=== PATIENT | male | born 2000 | race Caucasian/White ===

== ENCOUNTER 2024-06-29 07:43 | Outpatient (OUT) | payer OTHER, SELFPAY ==
--- NOTE | 2024-06-29 | XR_ITS ---
The [address] [address] Patient Name: KHUSHI JEFFRIES MRN: [id number] date: 2000 Sex: M Assigned Patient Location: Current Patient Location: Accession/Order Number: [id number] Exam Date: 06/29/2024 07:45 Report Date: 06/29/2024 16:30 At the request of: ANTWAN DHALIWAL Procedure: XR knee LT 4V EXAM: XR knee LT 4V HISTORY: LEFT KNEE PAIN COMPARISON: None. TECHNIQUE: 4 views. FINDINGS: No evidence of acute fracture, dislocation, or significant degenerative change. No significant joint effusion. XR/XR knee LT 4V IMPRESSION: Unremarkable left knee. Electronically authenticated by: LEROY VALDEZ Date: 06/29/2024 16:30
== END 2024-06-29 07:44 | disposition home or self-care (01) ==
PROVIDERS: PCP Family Medicine; Visit Provider Orthopaedic Surgery
DX: S89.92XD Unspecified injury of left lower leg, subsequent encounter (principal)
CPT/HCPCS: 73564

== ENCOUNTER 2025-05-12 09:49 | Outpatient (OUT) | payer BC, SELFPAY ==
--- OUTSIDE RECORDS SUMMARY | 2025-05-12 09:59 | XMS_ITS | Clinical Summary ---
Author Organization [facility] Address [address] [facility] [place] [address] Care Team Providers Care Machine Filler Shredder Name Role Phone Kerri Mckeon MD Primary Care Provider Allergies Active AllergyReactionsCriticalityNoted DateCommentsSulfamethoxazoleUnknown 04/09/2023 Medications MedicationSigDispense QuantityRefillsLast FilledStart DateEnd DateStatus fluocinolone (Synalar) 0.01 % external solution Indications:Chronic eczematous otitis externa of both ears4 drops in each ear 2 times daily for 10 days. May repeat once monthly 60 mL 04/16/2023ctive fluocinolone (Synalar) 0.025 % cream Indications:Chronic eczematous otitis externa of both earsApply to outer ear 2 times daily for 10 days. May repeat once monthly 60 g 04/16/2023ctive methylPREDNISolone (Medrol Dospak) 4 MG tablets Indications:Left elbow painFollow schedule on package instructions 21 tablet 05/11/2024ctive Active Problems ProblemNoted DateDiagnosed DateChronic eczematous otitis externa of both ears 04/16/2023dolescent idiopathic scoliosis of thoracolumbar gtwhxy6404/09/2023 Exercise-induced qmfjpo7404/09/2023rimary anxsrupm37/28/2023 Encounters DateTypeDepartmentCare FrhoCzisvzhmsiu31/30/2025Telephone [facility] [address] [place] [phone] Deanne Meza, ARRT from Last 3 Months Immunizations ImmunizationAdministration DatesNext DueDTaP, Ufaxvgfmbcp41/01/2007,05/20/2002, 2001,2001,2001Hep B, Adolescent or Hnfgpcffm74/23/2002, 2001,2001Hib (HbOC)02/02/2002,2001,2001,2001IPV 10/11/2006,05/20/2002,2001,2001Influenza Whole03/22/2003,02/10/2003 MMR10/11/2006,02/02/2002MMRV10/11/2006Meningococcal GKI1N4212/10/2018,01/23/2013 Pneumococcal Conjugate PCV ,2001,2001,2001Tdap 01/04/20126394Jyngqxnbx77/01/2007,02/02/2002 Family History Medical HistoryRelationNameCommentsDiabetesMaternal GrandfatherHypertension Maternal GrandmotherDiabetesMaternal GrandparentHypertensionMaternal Grandparent Colon cancerPaternal GrandfatherLeukemiaPaternal GrandfatherProstate cancer Paternal GrandfatherHeart diseasePaternal GrandmotherHeart diseasePaternal GrandparentHypertensionPaternal GrandparentRelationNameStatusCommentsFatherAlive Maternal GrandfatherAliveMaternal GrandmotherAliveMaternal GrandparentMother AlivePaternal GrandfatherDeceasedPaternal GrandmotherAlivePaternal Grandparent Social History Tobacco UseTypesPacks/DayYears UsedDateSmoking Tobacco: NeverSmokeless Tobacco: Never Tobacco Cessation:Counseling Given: Not Answered Alcohol UseStandard Drinks/WeekCommentsNever0 (1 standard drink = 0.6 oz pure alcohol)Sex and Gender InformationValueDate RecordedSex Assigned at BirthNot on fileLegal FwsCzcn7007/25/2022 7:20 PM EDTGender IdentityNot on fileSexual OrientationNot on file Last Filed Vital Signs Vital SignReadingTime TakenCommentsBlood Lzeqgspz974/9512/09/2022 1:32 PM EST Pulse--Temperature--Respiratory Rate--Oxygen Saturation--Inhaled Oxygen Concentration--Wyejbl97.4 kg (175 lb)04/16/2023 1:32 PM XGATobnng554.9 cm (6') 04/16/2023 1:32 PM ESTBody Mass Index23.7304/16/2023 1:32 PM EST Plan of Treatment DateTypeDepartmentCare Team (Latest Contact Info)Dmxqjmrpvnc80/05/2026 8:30 AM ESTOffice Visit [facility] [address] [place] [address] Tarik Sears, SUMI [address] [place] [address] Health MaintenanceDue DateLast DoneCommentsPneumococcal Vaccine: Pediatrics (0 to 5 Years) and At-Risk Patients (6 to 64 Years) (1 of 2 - PCV)01/19/2020 02/10/2003, 2001, 2001, Additional history existsInfluenza Vaccine (#1)5105/22/2002, 02/10/2003 Insurance Care Teams Team MemberRelationshipSpecialtyStart DateEnd Date Kerri Mckeon MD [address] [facility] [address] [place] [address] [facility]09/18/22
--- OUTSIDE RECORDS SUMMARY | 2025-05-12 09:59 | XMS_ITS | Clinical Summary ---
Author Organization [facility] Address [address] [facility], [address] [place] [address] Care Team Providers Care Manager Of Information Name Role Phone Kerri Mckeon MD Primary Care Provider [phone] Social History Tobacco UseTypesPacks/DayYears UsedDateSmoking Tobacco: Never AssessedSex and Gender InformationValueDate RecordedSex Assigned at BirthNot on fileLegal Sex Male06/22/2012 5:04 PM ESTGender IdentityNot on fileSexual OrientationNot on file Plan of Treatment Health MaintenanceDue DateLast DoneCommentsDepression Mylesw0901/18/2013HIV screen 01/19/2016HPV vaccine (1 - Male 3-dose series)01/19/2016Hepatitis C screen 2019Hepatitis B vaccine (1 of 3 - 19+ 3-dose series)01/19/2020DTaP/Tdap/Td vaccine (7 - Td or Tdap), 10/11/2006, 05/20/2002, Additional history existsFlu vaccine (#1)511/02/2003, 02/10/2003COVID-19 Vaccine ( season)2025Hib soogsirUztmflrkx35/23/2002, 2001, 2001, Additional history existsPneumococcal 0-49 years VaccineAged Out 02/10/2003, 2001, 2001, Additional history existsNo longer eligible based on patient's age to complete this topicPolio sttplfbWsypcxlzo49/01/2007, 05/20/2002, 2001, Additional history existsVaricella vaccineCompleted 10/11/2006, 10/11/2006, 02/02/2002Meningococcal (ACWY) vaccineCompleted 12/10/2018, 01/23/2013Hepatitis A vaccineAged OutNo longer eligible based on patient's age to complete this topicMeningococcal B vaccineAged OutNo longer eligible based on patient's age to complete this topic Insurance * Guarantor: John Jeffries TypeRelation to PatientDate of BirthPhone Billing AddressPersonal/YyxskuHbxb2000 [address] [place] [id number] Care Teams Team MemberRelationshipSpecialtyStart DateEnd Date Kerri Mckeon MD [address] [facility] [address] [place] [address] PCP - GeneralFamily Medicine07/15/24
--- OUTSIDE RECORDS SUMMARY | 2025-05-12 09:59 | XMS_ITS | Clinical Summary ---
Author Organization [employer] Address [id number] [address] [place] [address] Care Team Providers Care Parts Coordinator Name Role Phone Haroon Griffith DO Primary Care Provider [phone] Allergies Active AllergyReactionsCriticalityNoted DateCommentsSulfa (Sulfonamide Antibiotics)LcjgGof4304/11/2023 Active Problems ProblemNoted DateDiagnosed DateSprain of medial collateral ligament of left knee 01/29/2024Sprain of anterior cruciate ligament of left knee01/29/2024 Social History Tobacco UseTypesPacks/DayYears UsedDateSmoking Tobacco: NeverSmokeless Tobacco: NeverSex and Gender InformationValueDate RecordedSex Assigned at BirthNot on fileLegal AtbVhwq88/22/2022 3:34 PM EDTGender IdentityNot on fileSexual OrientationNot on file Last Filed Vital Signs Vital SignReadingTime TakenCommentsBlood Oveoicci152/7611 3:16 AM EST Irmon568104/11/2023 3:16 AM XANQbfbvqktyph56.1 ??C (98.8 ??F)04/11/2023 3:16 AM ESTRespiratory Tqty879506/11/2022 3:16 AM ESTOxygen Wsjjqecgha69%04/11/2023 3:16 AM ESTInhaled Oxygen Concentration--Zuvwmt43.9 kg (185 lb)01/29/2024 7:57 AM EDT Rkmjsd053.9 cm (6')01/29/2024 7:57 AM EDTBody Mass Index25. 7:57 AM EDT Plan of Treatment Health MaintenanceDue DateLast DoneCommentsDepression Nyqqomtmu25/08/2013 DTaP,Tdap and Td Vaccines (7 - Td or Tdap), 10/11/2006, 05/20/2002, Additional history existsInfluenza Pidklth67/01/36596305/22/2002, 02/10/2003Adult BMI Xvimtypny32/18/36788001/29/2024Tobacco Yldobhggd90/18/2025 01/29/2024 Medical Devices [place] [address] Care Teams Team MemberRelationshipSpecialtyStart DateEnd Date Haroon Griffith DO [address] [place] [address] [place] [address] PCP - GeneralFamily Hmdeodfi56/22/22
--- OUTSIDE RECORDS SUMMARY | 2025-05-12 09:59 | XMS_ITS | Encounter Summary ---
Author Organization [facility] Address [address] [place] [address] Care Team Providers Care Review Coordinator Name Role Phone Kerri Mckeon MD Primary Care Provider [phone] Encounter Details DateTypeDepartmentCare Team (Latest Contact Info)Fvosuaudovv56/30/2025Telephone [facility] [address] [place] [phone] Deanne Meza ARRT [address] [phone] Social History Tobacco UseTypesPacks/DayYears UsedDateSmoking Tobacco: NeverSmokeless Tobacco: NeverAlcohol UseStandard Drinks/WeekCommentsNever0 (1 standard drink = 0.6 oz pure alcohol)Sex and Gender InformationValueDate RecordedSex Assigned at Not on fileLegal UfeCadl5107/25/2022 7:20 PM EDTGender IdentityNot on fileSexual OrientationNot on filedocumented as of this encounter Miscellaneous Notes * Telephone Encounter - Lucie Rodriguez - 05/11/2025 1:49 PM EST Please send to [facility]. Please * Telephone Encounter - BRIANA Zaragoza - 05/11/2025 1:28 PM EST Called patient and left VM. Has an appt Saturday for follow up on scoliosis. Was given an order for an XR at his last visit. Called to see if he had the XR done. If not, a new order needs to be put in,need to know what location he would want to go to documented in this encounter Plan of Treatment DateTypeDepartmentCare Team (Latest Contact Info)Zdkfldfivhd56/05/2026 8:30 AM ESTOffice Visit [facility] [address] [facility] [address] Tarik Sears, SUMI [address] [place] [address] NameTypePriorityAssociated DiagnosesOrder ScheduleXR scoliosis 1 viewImaging Routine Adolescent idiopathic scoliosis of thoracolumbar region Expected: 05/11/2025 (Approximate), Expires: 05/11/2026documented as of this encounter Visit Diagnoses Diagnosis Adolescent idiopathic scoliosis of thoracolumbar region documented in this encounter Care Teams Team MemberRelationshipSpecialtyStart DateEnd Date Kerri Mckeon MD [address] [facility] [address] [place] [address] PCP - GeneralFamily Medicine09/18/22documented as of this encounter
--- OUTSIDE RECORDS SUMMARY | 2025-05-12 09:59 | XMS_ITS | CCD ---
Author Organization [facility] Care Team Providers Care Financial Advocate Name Role Phone MICHELLE, DR GUSTAFSON Primary Care Unavailable HAY ., DR PURI Admitting Unavailable HAY ., DR PURI Attending Unavailable GRECHNY ., RICARDA HOPPER Consulting UnavailFRANKIE Fierro Consulting Unavailable MICHELLE, DR GUSTAFSON Admitting Unavailable MICHELLE, DR GUSTAFSON Attending Unavailable MICHELLE, DR GUSTAFSON Primary Care Unavailable WANDER JOSEPH Attending Unavailable GORHAROON ROJAS Referring Unavailable GORNONANCYCZ, HAROON Primary Care Unavailable WANDER JOSEPH Referring Unavailable GORNOWICZ, HAROON Primary Care Unavailable Kerri Martinez MD Primary Care Provider FRANKIE MALONEY Attending FRANKIE Key Referring Unavailable FRANKIE MALONEY Attending Unavailable FRANKIE MALONEY Referring Unavailable FRANKIE MALONEY Referring Unavailable GornowiHaroon patel DO Primary Care Provider MILAD DHALIWAL Attending Unavailable MILAD DHALIWAL Referring Unavailable Kerri Martinez MD Primary Care Provider [phone] Allergies Allergy ClassificationReported Allergen(s)Allergy TypeDate of OnsetReaction(s) Facility (2 sources)Sulfonamides (Antibiotic)Drug allergy (disorder)[facility] (3 sources)Sulfonamides (Antibiotic); Translations: [SULFA (SULFONAMIDE ANTIBIOTICS)]Propensity to adverse reactions to drug (disorder)63-14-5137Xdxw [facility] (6 sources)SulfamethoxazoleAllergy to -05-5797[facility] Medications Current Medications MedicationDrug Class(es)DatesSig (Normalized)Sig (Original)fluocinolone acetonide 0.1 mg/ml topical solution (12 sources)CorticosteroidStart: 34-70-1636mzmaplkxwmvx (Synalar) 0.01 % external solution Indications: Chronic eczematous otitis externa of both ears 4 drops in each ear 2 times daily for 10 days. May repeat once monthly 60 mL 04/16/2023 ActiveStart: 33-40-5688eqykbriiozgd (Synalar) 0.025 % cream Indications: Chronic eczematous otitis externa of both ears Apply to outer ear 2 times daily for 10 days. May repeat once monthly 60 g 04/16/2023 Active methylPREDNISolone (2 sources)CorticosteroidStart: 23-51-6602lpooowCAMRJLXwfovn (Medrol Dospak) 4 MG tablets Indications: Left elbow pain Follow schedule on package instructions 21 tablet 05/11/2024 Active Problems Active Problems Problem ClassificationProblemDateDocumented DateEpisodic/ChronicAsthma (6 sources)Exercise-induced asthma; Translations: [Exercise induced bronchospasm]Onset: 676233-36-3716DqqrmquZsxii disorders and dislocations; trauma-related (1 source)Patellofemoral syndrome of right knee; Translations: [Patellofemoral disorders, right knee]37-68-3808QnemlmaJgecjekjxlobc mental health disorders (6 sources)Primary insomnia; Translations: [Primary insomnia]Onset: 04-09-2023 59-22-5717CflgnzrGmqit bone disease and musculoskeletal deformities (8 sources)Adolescent idiopathic scoliosis of thoracolumbar spine; Translations: [Adolescent idiopathic scoliosis, thoracolumbar region]Onset: 04-09-2023 36-55-1931HnewindCxrnl connective tissue disease (1 source)Lateral epicondylitis of left humerus; Translations: [Lateral epicondylitis, left elbow]19-39-6119BwnwghwuDhnig ear and sense organ disorders (6 sources)Chronic eczema of external auditory canal; Translations: [Other otitis externa, bilateral]Onset: 567769-69-8246NyhqeyrBtccz injuries and conditions due to external causes (1 source)Injury of left knee; Translations: [Unspecified injury of left lower leg, initial encounter]60-19-5188OisrzzxqVhnjd non-traumatic joint disorders (2 sources)Pain in left knee; Translations: [Pain in joint, lower leg]Onset: 331020-85-0216MdapxcllNmbfp non-traumatic joint disorders (1 source)Pain in elbow; Translations: [Pain in left elbow]94-40-6982Gzkgmvra Other non-traumatic joint disorders (1 source)Pain in right knee; Translations: [Pain in joint, lower leg]05-11-2024 EpisodicResidual codes; unclassified (1 source)PainOnset: 80-10-4398IqnlzxyzJglpoup and strains (11 sources)Sprain of joints and ligaments of unspecified parts of neck, initial encounter; Translations: [Sprain of medial collateral ligament of left knee, initial encounter]Onset: 846702-62-3389Cetunims Past or Other Problems Problem ClassificationProblemDateDocumented DateEpisodic/ChronicE Codes: Struck by; against (1 source)Accidental striking against or bumped into by another person, initial encounter; Translations: [ACCSTRIK/BUMPED ANOTHER PERSN INIT]Onset: 03-12-2022 EpisodicE Codes: Unspecified (1 source)Activity, mexican tackle football; Translations: [ACTIVITY PERUVIAN TACKLE FOOTBALL]Onset: 76-26-9964UbiaiyxjKnofj injuries and conditions due to external causes (1 source)Other specified injuries of head, initial encounter; Translations: [OTH SPEC INJURIES HEAD INITIAL ENC]Onset: 03-46-8294VxphunesQmomwufbowl; intervertebral disc disorders; other back problems (3 sources)Cervicalgia; Translations: [CERVICALGIA]Onset: 17-27-2640Bbohppus Results Test NameValueInterpretationReference RangeFacilityMR Knee - left WO contraston . Moderate to high-grade partial tear of the medial collateral ligament with associated bone marrow edema and equivocal small avulsion of the medial femoral condyle. Recommend CT scan to confirm. 2. Small effusion. 3. No internal derangement. [facility] RIS CONSOLIDATEDEXAMINATION: MRI OF THE LEFT KNEE WITHOUT CONTRAST, 07/15/2024 10:04 am TECHNIQUE: Multiplanar multisequence MRI of the left knee was performed without the administration of intravenous contrast. COMPARISON: None. HISTORY: ORDERING SYSTEM PROVIDED HISTORY: Injury of left knee, initial encounter FINDINGS: MENISCI: Intact medial and lateral menisci. LIGAMENTS: ACL: Normal PCL: Normal MCL: There is thickening and increased signal within the medial collateral ligament and juxtaposed bone marrow edema and equivocal small avulsion of the condyle at the insertion site of the deep fibers of the meniscal femoral ligament.. LCL complex: Normal EXTENSOR MECHANISM: The patella is in normal position. The quadriceps and patellar tendons are unremarkable. The medial and collateral retinaculum are normal. The patellar cartilage is normal. KNEE JOINT: Small effusion. BONE/CARTILAGE: The cartilage is smooth without focal defect. No focal marrow lesion. SOFT TISSUE: Unremarkable [facility] Mateo Colby MD - 07/15/2024 EXAMINATION: MRI OF THE LEFT KNEE WITHOUT CONTRAST, 07/15/2024 10:04 am TECHNIQUE: Multiplanar multisequence MRI of the left knee was performed without the administration of intravenous contrast. COMPARISON: None. HISTORY: ORDERING SYSTEM PROVIDED HISTORY: Injury of left knee, initial encounter FINDINGS: MENISCI: Intact medial and lateral menisci. LIGAMENTS: ACL: Normal PCL: Normal MCL: There is thickening and increased signal within the medial collateral ligament and juxtaposed bone marrow edema and equivocal small avulsion of the condyle at the insertion site of the deep fibers of the meniscal femoral ligament.. LCL complex: Normal EXTENSOR MECHANISM: The patella is in normal position. The quadriceps and patellar tendons are unremarkable. The medial and collateral retinaculum are normal. The patellar cartilage is normal. KNEE JOINT: Small effusion. BONE/CARTILAGE: The cartilage is smooth without focal defect. No focal marrow lesion. SOFT TISSUE: Unremarkable IMPRESSION: 1. Moderate to high-grade partial tear of the medial collateral ligament with associated bone marrow edema and equivocal small avulsion of the medial femoral condyle. Recommend CT scan to confirm. 2. Small effusion. 3. No internal derangement. [facility] observation (narrative)[facility] Knee - left WO contrastOrdered By: Mateo Izquierdo on 09-88-8754[employer] Work Phone: MRI KNEE LEFT WO CONTRASTon 03-79-2789VUO KNEE LEFT WO CONTRASTEXAMINATION: MRI OF THE LEFT KNEE WITHOUT CONTRAST, 07/15/2024 10:04 am TECHNIQUE: Multiplanar multisequence MRI of the left knee was performed without the administration of intravenous contrast. COMPARISON: None. HISTORY: ORDERING SYSTEM PROVIDED HISTORY: Injury of left knee, initial encounter FINDINGS: MENISCI: Intact medial and lateral menisci. LIGAMENTS: ACL: Normal PCL: Normal MCL: There is thickening and increased signal within the medial collateral ligament and juxtaposed bone marrow edema and equivocal small avulsion of the condyle at the insertion site of the deep fibers of the meniscal femoral ligament.. LCL complex: Normal EXTENSOR MECHANISM: The patella is in normal position. The quadriceps and patellar tendons are unremarkable. The medial and collateral retinaculum are normal. The patellar cartilage is normal. KNEE JOINT: Small effusion. BONE/CARTILAGE: The cartilage is smooth without focal defect. No focal marrow lesion. SOFT TISSUE: Unremarkable IMPRESSION: 1. Moderate to high-grade partial tear of the medial collateral ligament with associated bone marrow edema and equivocal small avulsion of the medial femoral condyle. Recommend CT scan to confirm. 2. Small effusion. 3. No internal derangement. Interpreted by: Mateo Izquierdo MD Signed by: Mateo Izquierdo MD 07/15/24 Final resultNormalSumma Health Wadsworth - Rittman Medical CenterXR Knee - left 4 Viewson 46-64-1835[place], [place] [id number] XRay Report Signed Patient: Khushi Jeffries MR#: [id number] : 2000 Acct:[id number] Age/Sex: 24 / M ADM Date: 06/29/24 Loc: Attending Dr: Milad Dhaliwal M.D. Ordering Physician: Milad Dhaliwal M.D. Date of Service: 06/29/24 Procedure(s): XR knee LT 4V Accession Number(s): [id number] cc: KERRI MARTINEZ ; Milad Dhaliwal M.D. The [address] [address] Patient Name: KHUSHI JEFFRIES MRN: [id number]:[id number] date: 2000 Sex: M Assigned Patient Location: Current Patient Location: Accession/Order Number: [id number] Exam Date: 06/29/2024 07:45 Report Date: 06/29/2024 16:30 At the request of: MILAD DHALIWAL Procedure: XR knee LT 4V EXAM: XR knee LT 4V HISTORY: LEFT KNEE PAIN COMPARISON: None. TECHNIQUE: 4 views. FINDINGS: No evidence of acute fracture, dislocation, or significant degenerative change. No significant joint effusion. XR/XR knee LT 4V IMPRESSION: Unremarkable left knee. Electronically authenticated by: LEROY VALDEZ Date: 06/29/2024 16:30 Dictated By: Leroy Valdez M.D. Signed By: 06/29/24 163 DD/ 163 TD/TT: Junior Architect:LENCHOHRadiology, Radiologist, - 06/29/2024 [place] [address] XRay Report Signed Patient: Khushi Jeffries MR#: [id number] : 2000 Acct:[id number] Age/Sex: 24 / M ADM Date: 06/29/24 Loc: EC Attending Dr: Milad Dhaliwal M.D. Ordering Physician: Milad Dhaliwal M.D. Date of Service: 06/29/24 Procedure(s): XR knee LT 4V Accession Number(s): [id number] cc: KERRI MARTINEZ ; Milad Dhaliwal M.D. The [place] [address] Patient Name: KHUSHI JEFFRIES MRN: [facility]:[id number] date: 2000 Sex: M Assigned Patient Location: Current Patient Location: Accession/Order Number: [id number] Exam Date: 06/29/2024 07:45 Report Date: 06/29/2024 16:30 At the request of: MILAD DHALIWAL Procedure: XR knee LT 4V EXAM: XR knee LT 4V HISTORY: LEFT KNEE PAIN COMPARISON: None. TECHNIQUE: 4 views. FINDINGS: No evidence of acute fracture, dislocation, or significant degenerative change. No significant joint effusion. XR/XR knee LT 4V IMPRESSION: Unremarkable left knee. Electronically authenticated by: LEROY VALDEZ Date: 06/29/2024 16:30 Dictated By: Leroy Valdez M.D. Signed By: 06/29/24 1633 DD/ 163 TD/TT: Junior Architect: [facility] HospitalRadiology Study observation (narrative)[facility] HospitalXR Knee - left 4 ViewsOrdered By: Radiologist Radiology on 47-07-2569ICMBProgress West Hospital Work Phone: XR Elbow - left 2 Viewson 66-75-2918Tlzisud Result: AP and Lat of the left elbow demonstrates no acute fracture of dislocation. Joint spaces are intact with no degenerative changes noted. Impression: no acute findings of left elbow. Frankie Maloney APRNAtrium Health HuntersvilleRadiology Study observation (narrative)[facility] HospitalXR Knee - right 1 or 2 Viewson 46-37-8541Bgonzxh Result: 05/11/2024: AP and lateral of right knee showed excellent preservation of joint space heights there was no flattening of the articular surfaces tricompartmentally. There was no evidence of marginal osteophytic formation. Overall alignment appeared to be normal. There was no evidence of fracture or dislocation. Bony structures in view showed excellent ossification. Impression: No acute bony process, right knee Frankie Maloney APRN-TROY [facility] Medical CenterRadiology Study observation (narrative)[facility] HospitalXR Spine Single viewon 70-25-5955Woygnlc Result: April 29, 2024 x-rays PA scoliosis views demonstrate a curve in the thoracic region as measured from the superior endplate of T4 to the superior endplate of T10 of 28 degrees apex to the right and then a lumbar curve as measured from superior endplate of T10 to the superior endplate of L4 of 25 degrees. [place] to the left. Growth plates are closed Impression: Scoliosis /thoracolumbar comparison is made to x-rays that were done in 04/23/2023 and his curves were 33 degrees and 25 degrees at that time Frankie Maloney APRNAtrium Health HuntersvilleRadiology Study observation (narrative)[facility] HospitalXR Knee - left 3 Viewson 77-28-0928U-rays multiple views left knee January 29, 2024: No fracture dislocation or other osseous pathology is noted. Essentially unremarkable x-rays of the left knee.MANUALLY TRANSCRIBED RESULTSParma Community General HospitalBidKind Radiology Study observation (narrative)[place] WindCT HEAD WO CONon 03-57-1083SG HEAD WO CONEXAM: CT HEAD WO CON, CT CSPINE WO CON COMPARISON: None available. CLINICAL INFORMATION: Headache, neck pain. TECHNIQUE: Axial noncontrast images were obtained through the brain and cervical spine with sagittal and coronal reconstructions. Dose reduction techniques were achieved by using automated exposure control and/or adjustment of mA and/or kV according to patient size and/or use of iterative reconstruction technique. FINDINGS: CT head: BRAIN: No intracranial hemorrhage. No extra-axial collection. No mass or mass effect. No midline shift. Isabel-white matter differentiation is preserved. CSF: Ventricles and sulci appropriate for age. Basal cisterns are patent. ORBITS: Visualized orbital structures are unremarkable. SINUSES AND MASTOID AIR CELLS: Paranasal sinuses are clear. Mastoid air cells are clear. BONES: No acute osseous abnormality. SOFT TISSUES: Unremarkable. CT C-spine: Reversal of the normal cervical lordosis, may be positional or may suggest muscle spasm. No evidence of traumatic subluxation. No acute fractures seen. No vertebral body height loss. No prevertebral soft tissue swelling. Minimal degenerative change at C4-C5, there may be a small Schmorl's node in the upper endplate of C5 vertebral body, no acute findings here. No spinal canal or foraminal stenosis. No acute findings in the upper chest. IMPRESSION: 1. No acute intracranial abnormality. 2. No evidence of acute osseous abnormality of the cervical spine. 3. Reversal of the normal cervical lordosis, may be positional or may suggest muscle spasm. 4. Minimal degenerative change at C4-C5, there may be a small Schmorl's node in the upper endplate of C5 vertebral body, no acute findings here. Electronically authenticated by: FRANKIE AYERS Date: 2022-03-10 20:21[facility] Health SystemCoding Summary.on 67-05-1400Ndycoo Summary.CODING DATE: 12/03/2019 [facility] STATUS: Home (Routine DC) PAYOR: [facility] [place] ADMIT DX: REASON FOR VISIT DX: R50.9 Fever, unspecified R43.9 Unspecified disturbances of smell and taste FINAL DX: PRINCIPAL: U07.1 2019-nCoV acute respiratory disease SECONDARY: PYMT PROC APC STAT DESCRIPTION DOCTOR NAME DATE NOTE: The code number assigned matches the documented diagnosis and / or procedure in the patient's chart. However, the narrative phrase printed from the coding software may appear abbreviated, or result in slightly different terminology. Coded By: Danny October Date Saved: 12/03/2019 07:57 [facility] CenterLab Reportson 40-08-5861Lnn [id number]#1.00CD:127[facility] HospitalReference Lab Reporton 33-61-4090Vsstfaekh Lab Report [id number]#1.00CD:[address] [place], [place] [address]Physician Orderon 53-44-4933Fhdnnahhu Order [id number]#1.00CD:[address] [place] [address] Vital Signs Date TimeVital SignValuePerforming AnezdqmzwUhiwoybr05-10-5902 07:57-0400Body qpabqw818.9 cmRiccardo nathanael DO Work Phone: [facility] HospitalGo Capital Zvlabr22-46-9516 07:57-0400Body mass index (BMI) [Ratio]25.09 kg/d9Kkaukhxh Opal [place] [employer] Work Phone: [facility] HospitalGo Capital Wnunbu83-21-0948 07:57-0400Body .92 kgRicWalter P. Reuther [facility]iatric [facility] [place] [employer] Work Phone: [facility] [employer] [facility] Encounters Encounter DateEncounter TypeCare ProviderFacilityStart: 07-15-2024 End: 14-37-0493Iqwerjdxrk hospital visit by Susannah Dhaliwal MD Work Phone: [facility] MRIComment on above:Injury of left knee, initial encounterStart: 30-86-8857mvhnxdblutCISWQEALINA [facility] HospitalStart: 06-29-2024 End: 80-39-5239Bkxkyaxmv Result EncounterGeneric External Data ProviderNOMS External Department UnsolicitedStart: 06-29-2024 End: 19-90-2370Lelqutwiv Result EncounterGeneric External Data ProviderNOMS External Department UnsolicitedStart: 05-11-2024 End: 43-44-3627Uafsxo outpatient visit 25 minutesFrankie Maloney NP Work Phone: NOFW FB ORTHOPAEDICSComment on above:Patellofemoral pain syndrome of right knee (Primary Dx); Left elbow pain; Right knee pain, unspecified chronicity; Lateral epicondylitis of left elbowStart: 05-11-2024 End: 62-97-4841gikvpjtdhiBFSXT T OLSENNot AvailableStart: 05-11-2024 End: 17-83-6006Zcauvd Jaime Maloney NP Work Phone: NOQP FB ORTHOPAEDICSStart: 05-11-2024 End: 11-66-8413Xbxwcj Jaime Maloney FILLING STATION ATTENDANT Work Phone: NOOJ FB ORTHOPAEDICSStart: 04-29-2024 End: 02-09-5956Mwyddd flowsDre Maloney FILLING STATION ATTENDANT Work Phone: NOTP [facility] ORTHOStart: 04-29-2024 End: 78-44-3340Jixjav Jaime Maloney FILLING STATION ATTENDANT Work Phone: NOYD [facility] ORTHOStart: 04-29-2024 End: 38-52-1389Patlpf outpatient visit 15 minutesFrankie Maloney NP Work Phone: noms [facility] ORTHOComment on above:Adolescent idiopathic scoliosis of thoracolumbar regionStart: 04-29-2024 End: 74-93-7384upyxynsdzbLPPMK T OLSENNot AvailableStart: 01-29-2024 End: 34-44-5809Lqovty outpatient new 30 minutesRiccardo Opal DO Work Phone: [facility] Orthopaedic SurgeryComment on above:Sprain of medial collateral ligament of left knee, initial encounter (Primary Dx); Acute pain of left knee; Sprain of anterior cruciate ligament of left knee, initial encounterStart: 01-29-2024 End: 01-63-5506mmpjmntslcHCNDEGEBSanford Medical Center FargoComment on above:Sprain of medial collateral ligament of left knee, initial encounter (Primary Dx); Sprain of anterior cruciate ligament of left knee, initial encounterStart: 03-10-2022 End: 40-00-0639ewjskgnexfED RUGEN ALDAFacility:U8Ymxki: 35-63-9881yqmjvckbnuSV RUGEN ALDAFacility:H1 Procedures DateProcedureProcedure DetailPerforming ClinicianStart: 75-20-7670Ahu any jt lower extrem w/o contrast Maratealexy Dhaliwal MD Work Phone: Start: 64-02-8447Chupeuream exam knee complete 4/more viewsGeneric External Data ProviderStart: 05-11-2024 End: 70-24-7522Dgxpp elbow 2 viewsFrankie Maloney NP Work Phone: Start: 20-47-9845Fvuhi spine 1 view specify levelFrankie Maloney NP Work Phone: Start: 15-42-1208Kapbhmfsqa examination knee 3 views Wander Carlabimaele DO Work Phone: Plan of Treatment DateCare ActivityDetailAuthorStart: 04-29-2025 End: 14-13-1521UM Thoracic and lumbar spine Views for scoliosisXR scoliosis 1 view Imaging Routine Adolescent idiopathic scoliosis of thoracolumbar region Expected: 04/29/2025, Expires: 04/29/2025[facility] Work Phone: Comment on above:Expected: 04/29/2025, Expires: 04/29/2025Start: 04-28-2025 End: 78-52-0639Yrgulqn encounter xcbykwjwe03/17/2025 1:15 PM EST Office Visit [facility] [address] [place] [address] Frankie Maloney, FILLING STATION ATTENDANT [address] [place] [address] [facility] ORTHOStart: 64-08-6228Ncalt BMI ScreeningAdult BMI ScreeningProOhiohealth Doctors Hospitalca [facility] Medical Centertart: 48-88-9846Ugpymdz ScreeningTobacco ScreeningIredell Memorial Hospitaltart: 05-11-2024 End: 79-38-6949Xncpris encounter procedureNOMS FB ORTHOPAEDICSComment on above: ArrivedStart: 04-29-2024 End: 66-90-5884Okeolnm encounter qzpwnfoxn58/18/2024 1:45 PM EST Office Visit [facility] [address] [place] [address] Frankie Maloney, FILLING STATION ATTENDANT [address] [place] [address] Adolescent idiopathic scoliosis of thoracolumbar regionNOMS [facility] ORTHOComment on above:Adolescent idiopathic scoliosis of thoracolumbar regionStart: 02-17-2024 End: 83-80-9880Kwtsvpd encounter alhwtrqqo43/07/2024 3:00 PM EDT Appointment [facility] - MRI [address] [place] [address] [facility] - MRIStart: 01-29-2024 End: 02-88-5144JZ Knee WO contrastMR knee left without contrast Imaging Routine Sprain of medial collateral ligament of left knee, initial encounter Sprain of anterior cruciate ligament of left knee, initial encounter Expected: 01/29/2024, Expires: 01/28/2025[facility] Work Phone: comment on above:Expected: 01/29/2024, Expires: 01/28/2025Start: 27-94-2625YMZJP-19 Vaccine ( season)COVID-19 Vaccine ( season)[facility] SystemStart: 87-22-9590Vljjwvpoj vaccinationNOIN HealthcareStart: 77-12-1212Umvhcufiy vaccinationFlu vaccine (#1) [facility] HospitalStart: 44-78-4919NJvF,Tdap and Td Vaccines (7 - Td or Tdap)DTaP,Tdap and Td Vaccines (7 - Td or Tdap)[facility] Hospitaltart: 39-16-3157OCqA/Tdap/Td vaccine (7 - Td or Tdap)DTaP/Tdap/Td vaccine (7 - Td or Tdap)[facility] Hospitalart: 99-57-6385Ksnqduvkf B vaccine (1 of 3 - 19+ 3-dose series)Hepatitis B vaccine (1 of 3 - 19+ 3-dose series)[facility] Hospitalart: 10-58-9069Nupsh BMI Follow Up PlanAdult BMI Follow Up [facility] Rockinghamtart: 62-71-1610Wwuvhoktg C screeningHepatitis C screenBon [facility]: 17-32-0146FFE screeningHIV screenBon [facility]: 73-93-4752CXO vaccine (1 - Male 3-dose series)HPV vaccine (1 - Male 3-dose series)[facility]: 47-42-0453Rlbvwabigl Screen Depression ScreenLewisGale Hospital Alleg[facility]any: 39-42-6320Qszxxwopmb Screening Depression ScreeningSelect Medical Specialty Hospital - [facility] Immunizations Immunization DateImmunizationNotesCare OopwvlxrKdaidzzs02-39-0631likuueiqdktgd polysaccharide (groups A, C, Y and W-135) diphtheria toxoid conjugate vaccine (MCV4P)Frankie Maloney FILLING STATION ATTENDANT Work Phone: [facility] HospitalKxdinzvbgq46-51-4454lphwjxjrtnace polysaccharide (groups A, C, Y and W-135) diphtheria toxoid conjugate vaccine (MCV4P)Frankie Maloney FILLING STATION ATTENDANT Work Phone: [facility] HospitalSyvazkphol30-50-4661mcbzdzv toxoid, reduced diphtheria toxoid, and acellular pertussis vaccine, adsorbedFrankie Maloney FILLING STATION ATTENDANT Work Phone: [facility] HospitalMjfdaqwjhp70-08-3315naufjtecdr, tetanus toxoids and acellular pertussis vaccine, unspecified formulationFrankie Maloney FILLING STATION ATTENDANT Work Phone: [facility] HospitalGnotfjfsxx53-60-9445wsefeom, mumps and rubella virus vaccineFrankie Maloney FILLING STATION ATTENDANT Work Phone: [facility] HospitalUbagbhvheh77-46-3041mccymey, mumps, rubella, and varicella virus vaccineFrankie Maloney FILLING STATION ATTENDANT Work Phone: [phone] [place], [place] [address]Fmzcmzmtla18-88-4714acgfkpfxmf vaccine, inactivatedGrant Maloney FILLING STATION ATTENDANT Work Phone: [phone] [address] [place], [place] [address]Dxuyumtqij41-39-2571xrbimircg virus vaccineGrant Maloney FILLING STATION ATTENDANT Work Phone: [phone] [place], [place] [address]Nuhejgphoy10-22-3013auokvjwqj virus vaccine, whole virusGrant Maloney FILLING STATION ATTENDANT Work Phone: [phone] [place], [place] [address]Kgdidtoeuj69-12-1905kpqmpthgk virus vaccine, unspecified formulationRiccardo Ayanaovannone DO Work Phone: [facility]Jzmuwf96-84-1518ghquigsem virus vaccine, whole virusGrant Maloney FILLING STATION ATTENDANT Work Phone: [phone] [place], [place] [address]Wqtpxtdprd76-21-8747nlgvsytkujyg conjugate vaccine, 7 valentGrant Maloney FILLING STATION ATTENDANT Work Phone: [phone] [place], [place] [address]Hfqvjwthlb67-35-3273irxpebqoys, tetanus toxoids and acellular pertussis vaccine, unspecified formulationGrant Maloney FILLING STATION ATTENDANT Work Phone: [phone] [place], [place] [address]Whifkhtesf65-02-4337wtcrhnsdfc vaccine, inactivatedGrant Maloney FILLING STATION ATTENDANT Work Phone: [phone] [place], [place] [address]Epmxrldhrg98-72-1137oxxlkrvgddw influenzae type b vaccine, HbOC conjugateGrant Maloney FILLING STATION ATTENDANT Work Phone: [phone] [place], [place] [address]Xqqhmorvlz50-27-3364cpszbqv, mumps and rubella virus vaccineGrant Maloney FILLING STATION ATTENDANT Work Phone: [phone] [place], [place] [address]Qujzbqidvn73-85-3076ltwdwuyer virus vaccineGrant Maloney FILLING STATION ATTENDANT Work Phone: [phone] [place], [place] [address]Werwmdyvzq03-93-8044guhdzgdtdr, tetanus toxoids and acellular pertussis vaccine, unspecified formulationGrant Maloney FILLING STATION ATTENDANT Work Phone: [phone] [place], [place] [address]Slauqlaovh88-47-6471ygabjqhfrf, tetanus toxoids and acellular pertussis vaccine, unspecified formulationGrant Maloney FILLING STATION ATTENDANT Work Phone: [phone] [place], [place] [address]Mcrllnvnlo26-35-4138eqazcrdilcd influenzae type b vaccine, HbOC conjugateGrant Maloney FILLING STATION ATTENDANT Work Phone: [phone] [place], [place] [address]Bwofrujwlz87-47-0493polepdllx B vaccine, pediatric or pediatric/adolescent dosageGrant Maloney FILLING STATION ATTENDANT Work Phone: [phone] [place], [place] [address]Zptkgnmwba49-73-1396rsypmwwerecu conjugate vaccine, 7 valentGrant Maloney FILLING STATION ATTENDANT Work Phone: [phone] [place], [place] [address]Nhuvzrdfoc04-84-0024yohhiqwhvc, tetanus toxoids and acellular pertussis vaccine, unspecified formulationGrant Maloney FILLING STATION ATTENDANT Work Phone: [phone] [place], [place] [address]Gyewkarbxw48-91-8253rzbkgsoqnab influenzae type b vaccine, HbOC conjugateGrant Maloney FILLING STATION ATTENDANT Work Phone: [phone] [place] [address]Vxpchjfhdw78-96-3719xerfpswujdqy conjugate vaccine, 7 valentGrant Maloney FILLING STATION ATTENDANT Work Phone: [phone] [place], [place] [address]Qgmjceqbiu67-78-3539rsfmaqyxcx vaccine, inactivatedGrant Maloney FILLING STATION ATTENDANT Work Phone: [phone] [place] [address]Dvudfwtepq67-16-9991ifomjxhfpim influenzae type b vaccine, HbOC conjugateGrant Maloney FILLING STATION ATTENDANT Work Phone: [phone] [place], [place] [address]Xuwshaotbh95-29-8425ujsglrgao B vaccine, pediatric or pediatric/adolescent dosageGrant Maloney FILLING STATION ATTENDANT Work Phone: [phone] [place], [place] [address]Vwxuodwiyu51-00-7945chbrjacucsmp conjugate vaccine, 7 valentGrant Maloney FILLING STATION ATTENDANT Work Phone: [phone] [place] [address]Dzvxnrqfxk79-69-0757unxcgchmou vaccine, inactivatedGrant Maloney FILLING STATION ATTENDANT Work Phone: [phone] [place], [place] [address]Tlcmdkancx70-53-7957btwsdcrnl B vaccine, pediatric or pediatric/adolescent dosageGrant Maloney FILLING STATION ATTENDANT Work Phone: [phone] [place] [address] Payers DatePayer CategoryPayerPolicy [id number] Health InsuranceMEDICAL MUTUAL [id number] [id number] [id number] [id number] [id number] 2.16840.1.279882.3.57[id number] 2.84[id number] 2.16840.1.321140.3.57[id number] 2.16840.1.405739.3.57[id number] 2.840.1.221851.3.57[id number] 2.840.1.180838.3.57[id number] 2.840.1.056524.3.579.2.977993-19-6575Qpla-[id number] Social History DateTypeDetailFacilityStart: 04-14-2023 End: 14-00-9057Zifakex smoking status NHISNever smoked tobaccoNOMS Healthcare Start: 04-14-2023 End: 39-97-0807Fayxgok use and exposureSmokeless tobacco non-userLancaster Municipal Hospital SystemStart: 04-16-2023 End: 51-96-0410Onhsfwxwy beverage intakeLifetime non-drinker (finding)[facility] HealthcareStart: 02-10-2014 End: 77-40-5806Srrbwnl of Social functionProMarion Hospital SystemStart: 02-10-2014 End: 09-67-5095Safotqq use panelIredell Memorial Hospitaltart: 86-44-1910Gfd assigned at birthNot on fileProTrinity Health System West CampusTobacco smoking status NEIS Tobacco smoking consumption unknownRiverside Health System History of Present illness Narrative 05-11-2024 Note Date & YcbnVhxsUduhtquv32-98-5048 History of Present illness Narrative* Frankie Maloney, FILLING STATION ATTENDANT - 05/11/2024 3:00 PM EST Images from the original note were not included. HISTORY OF PRESENT ILLNESS: EST PT Khushi Jeffries is an 24 y.o. @ male. EST PT, NEW PROBLEM: LT ELBOW PAIN XRAY TODAY EPIC 05/11/24 FEELS IF IT IS TENDONITIS. NOTES THAT IT DOES LOCK AND POP SOME TIMES. DOES HAVE SOME TINGLING ON THE OUTER PART OF THE ELBOW. DENIES TINGLING IN THE PAIN. ABLE TO DO NORMAL ACT IVIES UNTIL HE WORKS OUT AND THEN IT LOCKS UP ON HIM. PT NOTES THAT HE IS NOT TAKING ANYTHING FOR THE PAIN. IS USING BIOFREEZE AND ICE ON THE ELBOW WITH SOME RELIEF. DID NOTE INJURY WHILE PLAYING BASEBALL. DOES NOTE AFTER INJURY THERE WAS LIMITED ROM AND SOME SWELLING. PT IS RIGHT HANDED. RT KNEE PAIN XRAY TODAY EPIC 05/11/24 NOTICED THAT AFTER THE PAST YEAR OF FOOTBALL HE HAS SOME GRINDING. NOTES THAT IN CERTAIN POSITIONS IT IS PAINFUL. DOES FEEL IF THERE IS SOME WEAKNESS IN THE KNEE BUT DOES NOT GIVE. NOT STRETCHING DONE AT HOME OR PHYSICAL THERAPY. ALLERGIES: Allergies Allergen Reactions Sulfamethoxazole Unknown HOME MEDICATIONS: Current Outpatient Medications Medication Instructions fluocinolone (Synalar) 0.01 % external solution 4 drops in each ear 2 times daily for 10 days. May repeat once monthly fluocinolone (Synalar) 0.025 % cream Apply to outer ear 2 times daily for 10 days. May repeat once monthly methylPREDNISolone (Medrol Dospak) 4 MG tablets Follow schedule on package instructions PHYSICAL EXAM: Right Knee Exam Tenderness The patient is experiencing tenderness in the patella. Range of Motion Extension: normal Flexion: normal Tests Varus: negative Valgus: negative Other Sensation: normal Pulse: present Swelling: none Left Elbow Exam Tenderness The patient is experiencing tenderness in the lateral epicondyle. Range of Motion Extension: normal Flexion: normal Pronation: normal Supination: normal Muscle Strength Pronation: 5/5 Supination: 5/5 Tests Varus: negative Valgus: negative Other Sensation: normal Pulse: present Vitals: There is no height or weight on file to calculate BMI. Tobacco Use: Low Risk (04/29/2024) Patient History Smoking Tobacco Use: Never Smokeless Tobacco Use: Never Passive Exposure: Not on file Alcohol Use: Not on file IMAGING: XR elbow 1 or 2 views left Imaging Result: AP and Lat of the left elbow demonstrates no acute fracture of dislocation. Joint spaces are intactwith no degenerative changes noted. Impression: no acute findings of left elbow. Frankie Maloney UTILIZATION MANAGEMENT MANAGER-GENERAL REPAIR MECHANIC XR knee 1 or 2 views right Imaging Result: 05/11/2024: AP and lateral of right knee showed excellent preservation of joint space heights therewas no flattening of the articular surfaces tricompartmentally. There was no evidence of marginal osteophytic formation. Overall alignment appeared to be normal. There was no evidence of fracture or d islocation. Bony structures in view showed excellent ossification. Impression: No acute bony process, right knee Frankie Maloney UTILIZATION MANAGEMENT MANAGER-GENERAL REPAIR MECHANIC Procedures Orders Placed This Encounter Procedures XR elbow 1 or 2 views left Order Specific Question: Reason for exam: Answer: PAIN XR knee 1 or 2 views right Order Specific Question: Reason for exam: Answer: PAIN ASSESSMENT: ICD-10-CM 1. Patellofemoral pain syndrome of right knee M22.2X1 2. Left elbow pain M25.522 XR elbow 1 or 2 views left methylPREDNISolone (Medrol Dospak) 4 MG tablets 3. Right knee pain, unspecified chronicity M25.561 XR knee 1 or 2 views right 4. Lateral epicondylitis of left elbow M77.12 PLAN: I reviewed xrays of the left elbow and right knee with patient. I recommend that patient try MDP atthis time and follow up if no relief of symptoms. If still having right knee pain consider PT. If still having left elbow pain consider tennis elbow injection. Questions answered in laymen terms at the bedside. The diagnosis, home exercise plan and any ongoing restrictions/ recommendations reviewed. If unable to be reached in office, I recommend evaluation at nearest Emergency Room if any symptoms worsened or new symptoms develop for requiring urgent evaluation. documented in this encounterNOIN Healthcare History of Present illness Narrative 04-29-2024 Note Date & [id number] History of Present illness Narrative* Frankie Maloney NP - 04/29/2024 1:45 PM EST Images from the original note were not included. Chief Complaint Patient presents with Spine - Follow-up HISTORY OF PRESENT ILLNESS: Khushi Jeffries is an 24 y.o. @ male. (EST PT) LAST TX 04/16/[address] FORD FOR SCOLIOSIS. LBP SINCE 2019. DX WITH SCOLIOSIS BY DR MARTINEZ IN 2019. DENIES INJURY. XRAY TODAY EPIC 04/29/24 XRAY EPIC 04/16/23 XRAY EXA 01/06/19 XRAY [facility] 06/02/18 PHYSICAL THERAPY @ [facility] 04/2023 TIGHTNESS THROUGHOUT BACK. DENIES MUCH PAIN. DOING HEP, STRETCHING. NO PAIN MEDS. DENIES N/T DOWN LEGS. ALSO NOTES LT ELBOW AND RT KNEE PAIN ALLERGIES: Allergies Allergen Reactions Sulfamethoxazole Unknown HOME MEDICATIONS: Current Outpatient Medications Medication Instructions fluocinolone (Synalar) 0.01 % external solution 4 drops in each ear 2 times daily for 10 days. May repeat once monthly fluocinolone (Synalar) 0.025 % cream Apply to outer ear 2 times daily for 10 days. May repeat once monthly REVIEW OF SYSTEMS: General: Denies fever, fatigue or weight loss Skin: Denies rash, sores or skin changes Eyes: Denies visual disturbance or pain GI: Denies indigestion or abdominal pain Neuro: Denies numbness or tingling, denies new onset paralysis Musculoskeletal: ( see note) PHYSICAL EXAM: Back Exam Tenderness The patient is experiencing no tenderness. Range of Motion Back flexion: FF to mid tibia. Tests Straight leg raise right: negative Straight leg raise left: negative Comments: LT paralumbar and RT parathoracic fullness Hamstring tightness Vitals: There is no height or weight on file to calculate BMI. IMAGING: XR spine Imaging Result: April 29, 2024 x-rays PA scoliosis views demonstrate a curve in the thoracic region as measured from the superior endplate of T4 to the superior endplate of T10 of 28 degrees apex to the right andthen a lumbar curve as measured from superior endplate of T10 to the superior endplate of L4 of 25 degrees. [place] to the left. Growth plates are closed Impression: Scoliosis /thoracolumbar comparison is made to x-rays that were done in 04/23/2023 and his curves were 33 degrees and 25 degrees at that time Frankie Maloney UTILIZATION MANAGEMENT MANAGER-GENERAL REPAIR MECHANIC ASSESSMENT: ICD-10-CM 1. Adolescent idiopathic scoliosis of thoracolumbar region M41.125 XR spine XR scoliosis 1 view Procedures PLAN: I reviewed xray findings with patient which demonstrated no progression from previous xray. I encouraged patient to continue to work on HEP and to stay active. He will follow up with any worsening symptoms and have repeat xray in 1 year. Questions answered in laymen terms at the bedside. The diagnosis, home exercise plan and any ongoing restrictions/ recommendations reviewed. If unable to be reached in office, I recommend evaluation at nearest Emergency Room if any symptoms worsened or new symptoms develop for requiring urgent evaluation. Frankie Maloney APRN-GENERAL REPAIR MECHANIC documented in this encounterNOMS Healthcare History of Present illness Narrative 01-29-2024 Note Date & [id number] History of Present illness Narrative* Wander Joseph, - 01/29/2024 8:00 AM EDT 01/29/2024 CC: Chief Complaint Patient presents with Left Knee - Pain HPI: Khushi Jeffries is a 24 y.o. male. 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 Immediate pain medially. 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 Placed in a hinged knee brace. Pivoting increases pain. + swelling. Ibuprofen prn with some relief. Referral to [facility]. He denies any prior history of injury to that knee. Brace is helping with stability. Social History Socioeconomic History Marital status: Single Spouse name: Not on file Number of children: Not on file Years of education: Not on file Highest education level: Not on file Occupational History Not on file Tobacco Use Smoking status: Never Smokeless tobacco: Never Substance and Sexual Activity Alcohol use: Not on file Drug use: Not on file Sexual activity: Not on file Other Topics Concern Not on file Social History Narrative Not on file Social Determinants of Health Financial Resource Strain: Not on file Food Insecurity: Not on file Transportation Needs: Not on file Physical Activity: Not on file Stress: Not on file Social Connections: Not on file Interpersonal Safety: Not on file Housing Instability: Not on file History reviewed. No pertinent surgical history. No current outpatient medications on file. No current facility-administered medications for this visit. Allergies Allergen Reactions Sulfa (Sulfonamide Antibiotics) Rash History reviewed. No pertinent past medical history. Ht 182.9 cm (6') Wt 83.9 kg (185 lb) BMI 25.09 kg/m Body mass index is 25.09 kg/m . EXAM: Vitals: 01/29/24 0757 Weight: 83.9 kg (185 lb) Height: 182.9 cm (6') No gross deformity. No clinical signs of infection. Examination of the left knee reveals some laxity to valgus load to the knee. Positive anterior drawer and positive Lachmans. Tenderness to the medial femoral condyle region. Mild medial joint line tenderness. NEURO: Oriented, alert, appears in no acute distress. Grossly normal motor and sensory function. Vascular exam is grossly normal. No results found. No results found. ASSESSMENT: 1. MCL sprain left knee. 2. ACL sprain left knee. PLAN: I discussed the x-ray findings with the patient. I recommend that he undergo an MRI to determine the extent of internal injury and then plan for surgical intervention if needed. For now he willcontinue with his knee brace he may use crutches as needed continue with icing and anti-inflammatory usage as well. He will also limit his activities somewhat. We will see him in follow-up in the near future. Procedures Medication List as of January 29, 2024 7:57 AM You have not been prescribed any medications. BRIANA Gonsales documented in this encounterLanc[facility] Evaluation note Note Date & TypeNoteFacilityEvaluation note* Diagnosis Adolescent idiopathic scoliosis of thoracolumbar region documented in this encounter [facility] Evaluation note Note Date & TypeNoteFacilityEvaluation note* Diagnosis Patellofemoral pain syndrome of right knee- Primary Left elbow pain Pain in joint, upper arm Right knee pain, unspecified chronicity Lateral epicondylitis of left elbow documented in this encounter [facility] Healthcare Evaluation note Note Date & TypeNoteFacilityEvaluation note* Diagnosis Sprain of medial collateral ligament of left knee, initial encounter- Primary Acute pain of left knee Sprain of anterior cruciate ligament of left knee, initial encounter documented in this encounter [facility] Evaluation note Note Date & TypeNoteFacilityEvaluation note* Diagnosis Sprain of medial collateral ligament of left knee, initial encounter- Primary Sprain of anterior cruciate ligament of left knee, initial encounter documented in this encounter [facility] Evaluation note Note Date & TypeNoteFacilityEvaluation note* Diagnosis Injury of left knee, initial encounter documented in this encounter [facility] Instructions Note Date & TypeNoteFacilityInstructionsNot on filedocumented in this encounter [facility] Instructions Note Date & TypeNoteFacilityInstructionsNot on filedocumented in this encounter [facility] Summary Purpose Family History No Family History Records FoundNo Family History Records FoundNo Family History Records FoundNo Family History Records FoundNo Family History Records Found Advance Directives No Advanced Directives Records FoundNo Advanced Directives Records FoundNo Advanced Directives Records FoundNo Advanced Directives Records FoundNo Advanced Directives Records Found Reason for Referral SpecialtyDiagnoses / ProceduresReferred By ContactReferred To ContactRadiology Diagnoses Sprain of medial collateral ligament of left knee, initial encounter Sprain of anterior cruciate ligament of left knee, initial encounter Procedures MR knee left without contrast Wander Joseph DO [address] [place] [address] [place] [address] [place] [address] Phone: [phone] Referral IDStatusReasonStart DateExpiration DateVisits RequestedVisits [id number] [id number] / ProceduresReferred By ContactReferred To ContactRadiology Diagnoses Injury of left knee, initial encounter Procedures MRI KNEE LEFT WO CONTRAST Milad Dhaliwal MD [address] [place] [address] Referral IDStatusReasonStart DateExpiration DateVisits RequestedVisits [id number]/18/20254/ Additional Source Comments (unrecognized sect ion and content) No Status Records FoundNo Status Records FoundNo Status Records FoundNo Status Records FoundNo Status Records Found INFORMATION SOURCE (unrecogn ized section and content) DATE CREATED AUTHOR 12/04/2019 [facility] DATE CREATED AUTHOR AUTHOR'S ORGANIZ ATION 08/28/2022 [facility] DATE CREATED AUTHOR AUTHOR'S ORGANIZ ATION 01/31/2024 [facility] DATE CREATED AUTHOR AUTHOR'S ORGANIZ ATION 05/22/2024 [facility] EPIC DATE CREATED AUTHOR AUTHOR'S ORGANIZ ATION 07/17/2024 [facility] Care Teams (unrecognized sec tion and content) Team MemberRelationshipSpecialtyStart DateEnd Date Kerri Martinez MD [address] [address] PCP - Generalmily Medicine09/18/22Team MemberRelationshipSpecialtyStart DateEnd Date Kerri Martinez MD [address] [facility] [address] [place] [address] PCP - GeneralFamily Medicine09/18/22Team MemberRelationshipSpecialtyStart DateEnd Date Kerri Martinez MD [address] [address] PCP - GeneralFamily Medicine09/18/22Team MemberRelationshipSpecialtyStart DateEnd [place] [address] [facility]CP - [facility]Still[facility] Zvzxpwgo39/22/22Te MemberRelationshipSpecialtyStart Date End Date Haroon Griffith DO [address] [place] [address] [facility] - [facility]03/03/22Te MemberRelationshipSpecialtyStart Date End Date Kerri Martinez MD [address] [facility] [address] [place] [address] PCP - [facility]Gr[facility]09/18/22Team MemberRelationshipSpecialtyStart DateEnd Date Kerri Martinez MD [address] [address] PCP - [facility]Gr[facility]07/15/24 Reason for Visit (unrecogniz ed section and content) ReasonCommentsFollow-upReasonCommentsPainSpecialtyDiagnoses / ProceduresReferred By ContactReferred To ContactRadiology Diagnoses Injury of left knee, initial encounter Procedures MRI KNEE LEFT WO CONTRAST Milad Dhaliwal MD [address] [id number] Referral IDStatusReasonStart DateExpiration DateVisits RequestedVisits [id number]/ FOR RECORDS PERTAINING TO PATIENTS WHO ARE OR HAVE BEEN ENROLLED IN A CHEMICAL DEPENDENCY/SUBSTANCEABUSE PROGRAM, SOME INFORMATION MAY BE OMITTED. This clinical summary was aggregated from multiple sources. Caution should be exercised in using it in the provision of clinical care. This summary normalizes information from multiple sources, and as a consequence, information in this document may materially change the coding, format and clinical context of patient data. In addition, data may be omitted in some cases. CLINICAL DECISIONS SHOULD BE BASED ON THE PRIMARY CLINICAL RECORDS. [facility] HospitalmobilePeople [facility]. provides no warranty or guarantee of the accuracy or completeness of information in this document.
--- NOTE | 2025-05-12 10:25 | XR_ITS ---
[facility] [place] [id number] Patient Name: KHUSHI JEFFRIES MRN: [id number] date: 2000 Sex: M Assigned Patient Location: [facility] Current Patient Location: [facility] Accession/Order Number: [id number] Exam Date: 05/12/2025 10:15 Report Date: 05/12/2025 11:17 At the request of: FRANKIE MALONEY NP Procedure: XR scoliosis survey THORACOLUMBAR SPINE (scoliosis series) - 12 images COMPARISON: 06/02/2018 CLINICAL DATA: Follow-up scoliosis AP weightbearing views of the spine were obtained with and without bending as well as using long cassette. There is redemonstration demonstration of S-shaped thoracolumbar scoliotic curvature. The thoracic dextroscoliosis measures 33 degrees. The lumbar levoscoliosis measures 26 degrees. These measurements are slightly greater, particularly at the lumbar spine where the previous measurement was 18 degrees. There are no obvious acute fractures. No paraspinal soft tissue abnormalities are seen. XR/XR scoliosis survey IMPRESSION: CONTINUED S-SHAPED THORACOLUMBAR SCOLIOTIC CURVATURE, POTENTIALLY SLIGHTLY PROGRESSED. Impression dictated by: Nena Wright M.D. 05/12/2025 11:17 AM Dictation Location: DearLocal Electronically authenticated by: [id number] Date: 05/12/2025 11:17
== END 2025-05-12 09:50 | disposition home or self-care (01) ==
PROVIDERS: PCP Family Medicine; Visit Provider Nurse Practitioner Family
DX: M41.125 Adolescent idiopathic scoliosis, thoracolumbar region (principal)
CPT/HCPCS: 72082